=== PATIENT | male | born 1965 | race Caucasian/White ===

== ENCOUNTER 2019-02-28 20:11 | Emergency (ER) | payer SELFPAY ==
[~2019-02-28] VITALS: Ht 172.7 cm; Wt 99.3 kg
[2019-02-28 20:34] VITALS: BP 117/89; Ht 172.7 cm; Wt 99.3 kg
== END 2019-02-28 22:32 | disposition left against medical advice (07) ==
LOC: ED 20:11
DX: Z53.21 Procedure and treatment not carried out due to patient leaving prior to being seen by health care provider (principal)